=== PATIENT | male | born 1965 | race Caucasian/White ===

== ENCOUNTER 2017-05-15 10:48 | Emergency (ER) | payer BC ==
[~2017-05-15] VITALS: Ht 167.6 cm; Wt 72.6 kg
[2017-05-15] MEDS ORDERED: TDAP DIPH,PERTUSS,TET VAC/PF 0.5 ML DISP.SYRIN IM ONE ×2 (11:15→11:36)
[2017-05-15] MEDS ORDERED: IBUPROFEN 600 MG TABLET PO ONE (11:15)
[2017-05-15] MEDS ORDERED: LIDOCAINE HCL 1% 20 ML VIAL IJ ONE (11:15)
[2017-05-15] MEDS ORDERED: IBUPROFEN 600 MG TABLET ONE (11:36)
--- NOTE | 2017-05-15 12:05 | NUR ---
Patient discharged to home in stable conditon. Written and verbal after care instructions given to patient. Patient verbalizes understanding of instructions.
== END 2017-05-15 12:06 | disposition home or self-care (01) ==
LOC: ER 10:48
DX: S81.812A Laceration without foreign body, left lower leg, initial encounter (principal); W01.0XXA Fall on same level from slipping, tripping and stumbling without subsequent striking against object, initial encounter; Y92.89 Other specified places as the place of occurrence of the external cause; Y93.01 Activity, walking, marching and hiking; Y99.8 Other external cause status
CPT/HCPCS: 12002; 90471; 90715; 99283; A4217; A4663; J3490